=== PATIENT | female | born 1980 | race Caucasian/White ===

== ENCOUNTER 2025-07-14 19:27 | Emergency (ER) | payer OTHER ==
[~2025-07-14] VITALS: Ht 162.6 cm; Wt 68.0 kg
[2025-07-14 19:47] VITALS: BP 105/65; TEMP 98.4; O2SAT 97
[2025-07-14] MEDS ORDERED: ACET-2030 PO (19:54)
[2025-07-14] MEDS ORDERED: IBUP-1490 PO (19:54)
[2025-07-14] MEDS ORDERED: ACETAMINOPHEN ES 500 MG TABLET ONE (20:01)
[2025-07-14] MEDS ORDERED: KETOROLAC TROMETHAMINE 15 MG/ML VIAL ONE (20:01)
[2025-07-14] MEDS: KETOROLAC TROMETHAMINE 15 MG/ML VIAL IV ONE (20:22)
[2025-07-14] MEDS: ACETAMINOPHEN ES 500 MG TABLET PO ONE (20:22)
[2025-07-14] MEDS: IV NS 0.9% 1,000 ML BAG IV ONE (20:22)
== END 2025-07-14 23:16 | disposition home or self-care (01) ==
LOC: ER 19:43
DX: J02.9 Acute pharyngitis, unspecified (principal); R05.9 Cough, unspecified; R52 Pain, unspecified; Z60.2 Problems related to living alone
CPT/HCPCS: 99283; 96374; 96361; J1885; J7030